=== PATIENT | male | born 1975 | race Caucasian/White ===

== ENCOUNTER → 2020-01-29 09:57 | Outpatient (BNVA) | payer SELFPAY | PROVIDERS: Visit Provider Nurse Practitioner Family | DX: R53.83 Other fatigue (principal); M25.50 Pain in unspecified joint; W57.XXXA Bitten or stung by nonvenomous insect and other nonvenomous arthropods, initial encounter; M79.606 Pain in leg, unspecified; M79.89 Other specified soft tissue disorders | CPT/HCPCS: 80053; 84550; 85025; 86618; 86666; 86757 ==

== ENCOUNTER → 2020-02-02 11:28 | Outpatient (BNVA) | payer SELFPAY | PROVIDERS: Visit Provider Nurse Practitioner Family | DX: R73.09 Other abnormal glucose (principal) | CPT/HCPCS: 83036 ==

== ENCOUNTER → 2021-01-12 16:37 | Outpatient (BNVA) | payer SELFPAY | PROVIDERS: Visit Provider Registered Nurse Neonatal Intensive Care | DX: R39.9 Unspecified symptoms and signs involving the genitourinary system (principal) | CPT/HCPCS: 81000 ==

== ENCOUNTER 2021-03-04 14:02 | Outpatient (CLI) | payer SELFPAY ==
--- NOTE | 2021-03-04 14:08 | XRR_ITS ---
PROCEDURE INFORMATION: Exam: XR Abdomen Exam date and time: 03/04/2021 2:08 PM Age: 46 years old Clinical indication: Abdominal pain; Generalized; Patient HX: Pain in middle of abd; Additional info: Blood in urine TECHNIQUE: Imaging protocol: XR of the abdomen. Views: Frontal supine view of the abdomen. 1 View. COMPARISON: CT Abdomen/Pelvis Renal [id number] 06/14/2018 11:23 PM FINDINGS: Gastrointestinal tract: Normal. No bowel dilation. Organs: No definite urinary tract calculus. Bones/joints: No acute findings. XR/XR KUB [id number] IMPRESSION: No acute findings.
== END 2021-03-04 14:03 | disposition home or self-care (01) ==
PROVIDERS: PCP Nurse Practitioner; Visit Provider Nurse Practitioner
DX: R31.9 Hematuria, unspecified (principal); R10.9 Unspecified abdominal pain
CPT/HCPCS: 74018; 81000